=== PATIENT | female | born 1945 | race Caucasian/White ===

== ENCOUNTER → 2016-07-16 | Outpatient (CLI) | payer OTHER, BC ==
[2015-12-22 15:18] VITALS: BP 127/58
[2016-07-16 14:11] LABS: BASOPHILS % (AUTO) 0.3 % (0.2-1.0); EOSINOPHILS # (AUTO) 0.2 x10^3/uL (0.0-0.2); EOSINOPHILS % (AUTO) 3.3 % (0.9-2.9); HEMATOCRIT 42.2 % (36.0-47.0); HEMOGLOBIN 14.1 g/dL (12.0-16.0); LYMPHOCYTES # (AUTO) 1.5 X10^3/uL (1.3-2.9); LYMPHOCYTES % (AUTO) 29.9 % (21.0-51.0); MEAN CORPUSCULAR HEMOGLOBIN 31.7 pg (27.0-34.0); MEAN CORPUSCULAR HGB CONC 33.4 g/dL (33.0-35.0); MEAN CORPUSCULAR VOLUME 94.9 fL (80.0-100.0); MEAN PLATELET VOLUME 8.2 fL (7.4-11.0); MONOCYTES # (AUTO) 0.4 x10^3/uL (0.3-0.8); MONOCYTES % (AUTO) 8.4 % (0.0-13.0); NEUTROPHILS # (AUTO) 2.9 x10^3/uL (2.2-4.8); NEUTROPHILS % (AUTO) 58.1 % (42.0-75.0); PLATELET COUNT 245 X10^3/uL (150.0-450.0); RED BLOOD COUNT 4.44 X10^6/uL (3.5-5.4); RED CELL DISTRIBUTION WIDTH 12.5 % (11.6-16.5); WHITE BLOOD COUNT 4.9 X10^3/uL (3.6-10.0)
[2016-07-16 14:13] LABS: ALANINE AMINOTRANSFERASE 34 Units/L (12-78); ALBUMIN 3.5 g/dL (3.4-5.0); ALKALINE PHOSPHATASE 84 Units/L (46-116); ASPARTATE AMINO TRANSFERASE 32 Units/L (15-37); BLOOD UREA NITROGEN 12 mg/dL (7-18); CALCIUM 8.6 mg/dL (8.5-10.1); CARBON DIOXIDE 28.3 mmol/L (21-32); CHLORIDE 107 mmol/L (98-107); CHOL/HDL RATIO 2.8 (0.0-5.0); CHOLESTEROL 150 mg/dL (0-200); COR NA(FOR HYPERGLY) 143 mmol/L (136-145); CREATININE 0.88 mg/dL (0.55-1.02); GLUCOSE 115 mg/dL (65-99); HDL CHOLESTEROL 54 mg/dL (40-60); MAGNESIUM 1.9 mg/dL (1.7-2.9); SODIUM 143 mmol/L (136-145); TOTAL PROTEIN 7.2 g/dL (6.4-8.2); TRIGLYCERIDES 112 mg/dL (0-150); eGFR BLACK RACES > 60 (>60); eGFR NON BLACK RACES > 60 (>60)
[2016-07-16 14:49] LABS: ERYTHROCYTE SEDIMENTATION RATE 5 MM/HOUR (0-20)
[2016-07-16 15:04] LABS: TRANSFERRIN 207 mg/dL (202-364)
== END ==
LOC: LAB 13:18
PROVIDERS: ATTEND Nurse Practitioner Family
DX: D51.0 Vitamin B12 deficiency anemia due to intrinsic factor deficiency (principal); E55.9 Vitamin D deficiency, unspecified; E78.4 Other hyperlipidemia; I10 Essential (primary) hypertension; Z76.0 Encounter for issue of repeat prescription
CPT/HCPCS: 36415; 80053; 80061; 82306; 82607; 82728; 82746; 83735; 84466; 85025; 85652; 86140

== ENCOUNTER → 2016-07-18 | Outpatient (CLI) | payer OTHER, BC ==
[2015-12-22 15:18] VITALS: BP 127/58
[2016-07-18 15:49] LABS: CREATININE,URINE 30.6 mg/dL (29-226); MICROALBUMIN,URINE 1.6 mg/L
== END ==
LOC: LAB 15:15
PROVIDERS: ATTEND Nurse Practitioner Family
DX: Z76.0 Encounter for issue of repeat prescription (principal); D51.0 Vitamin B12 deficiency anemia due to intrinsic factor deficiency; E55.9 Vitamin D deficiency, unspecified; E78.4 Other hyperlipidemia; I10 Essential (primary) hypertension
CPT/HCPCS: 82043

== ENCOUNTER → 2016-07-19 | Outpatient (CLI) | payer OTHER, BC ==
[2015-12-22 15:18] VITALS: BP 127/58
--- NOTE | 2016-07-19 12:05 | US ---
History: Ovarian enlargement Exam: Pelvic ultrasound Comparison: None Technique: Multiple grayscale and color flow Doppler images of the pelvis were obtained. Findings: The uterus appears normal measuring 5.4 x 3.3 x 2.5 cm. The endometrial stripe appears within normal limits. No uterine mass or fluid collection. The right ovary measures 1.9 x 1.1 x 1.3 cm with normal flow. The left ovary measures 1.1 x 0.9 x 1. 0 cm with normal flow. No adnexal masses. No significant free fluid. IMPRESSION: 1. Unremarkable pelvic ultrasound. Reported By:
--- NOTE | 2016-07-19 12:52 | US ---
HISTORY: Abdominal pain. Renal issues. Study: Complete abdominal ultrasound exam. Comparison: None. Technique: Multiple daniels scale and color flow Doppler images of the abdomen were obtained. Findings: The liver is normal in echotexture. No intraparenchymal mass or intrahepatic biliary ductal dilatat ion can be identified. There is a large amount of shadowing in the gallbladder fossa which could be secondary to a large amount of gallstones or calcification of the gallbladder wall. This could be b est assessed with CT imaging of the abdomen with IV contrast. The common bile duct is normal measur ing 4 millimeters. The spleen is not seen on this exam. The visualized portions of the pancreas are normal in their echotexture and size. The right and left kidney are normal in echotexture and size. The right kidney measures 92 x 52 x 54 millimeters. The left kidney measures 90 x 42 x 44 millimeter s. No mass, hydronephrosis, or stone can be identified. The visualized portions of the abdominal aor ta are normal in size without aneurysmal dilatation. The inferior vena cava is unremarkable as well . No ascites or focal fluid collection is evident. IMPRESSION: Large amount of shadowing in the gallbladder fossa which could be secondary to a large a mount of gallstones or calcification of the gallbladder wall. This could be best assessed with CT im aging of the abdomen with IV contrast. No ascites is observed. Spleen is not observed on this examin ation. No other abdominal sonographic abnormalities are seen. Reported By:
== END ==
LOC: RAD 10:23
PROVIDERS: ATTEND Nurse Practitioner Family
DX: N83.8 Other noninflammatory disorders of ovary, fallopian tube and broad ligament (principal); R10.31 Right lower quadrant pain
CPT/HCPCS: 76700; 76830

== ENCOUNTER → 2016-07-27 | Outpatient (CLI) | payer OTHER, BC ==
[2015-12-22 15:18] VITALS: BP 127/58
[2016-07-27 12:14] LABS: BILIRUBIN,URINE NEGATIVE (NEGATIVE); BLOOD/HEMOGLOBIN,URINE 3+ (NEGATIVE); GLUCOSE, URINE NEGATIVE (NEGATIVE); KETONES,URINE NEGATIVE (NEGATIVE); LEUKOCYTE ESTERASE ,URINE 3+ (NEGATIVE); NITRITES,URINE POSITIVE (NEGATIVE); PROTEIN,URINE 2+ (NEGATIVE); UROBILINOGEN,URINE NORMAL (NORMAL)
[2016-07-27 12:30] LABS: APPEARANCE,URINE CLOUDY (CLEAR); COLOR,URINE YELLOW (YELLOW)
[2016-07-27 12:31] LABS: AMORPHOUS SEDIMENT,UR TRACE /HPF (NEGATIVE); BACTERIA,URINE 2+ /HPF (NEGATIVE); RBC,URINE 0 - 2 /HPF (NEGATIVE); RENAL EPITHELIAL CELLS,URINE RARE /HPF (NEGATIVE); SQUAMOUS EPITHELIAL CELL,UR FEW /HPF (NEGATIVE)
== END ==
LOC: LAB 11:49
PROVIDERS: ATTEND Nurse Practitioner Family
DX: R30.0 Dysuria (principal); B96.29 Other Escherichia coli [E. coli] as the cause of diseases classified elsewhere
CPT/HCPCS: 81001; 87086; 87088; 87186

== ENCOUNTER → 2016-08-13 | Outpatient (CLI) | payer OTHER, BC ==
[2015-12-22 15:18] VITALS: BP 127/58
== END ==
LOC: LAB 12:22
PROVIDERS: ATTEND Nurse Practitioner Family
DX: R30.0 Dysuria (principal)
CPT/HCPCS: 87086

== ENCOUNTER → 2016-08-15 | Outpatient (CLI) | payer OTHER, BC ==
[2015-12-22 15:18] VITALS: BP 127/58
--- NOTE | 2016-08-15 16:11 | RAD ---
Examination: X-rays of the right shoulder. Clinical history: Right shoulder pain. Technique: Three views of the right shoulder were obtained. A total of 4 images were reviewed. Comparison: None available. Findings: No acute fracture, dislocation, or destructive bony lesion is noted. No arthropathy is appreciated at the right shoulder. Degenerative changes are noted in the visualize d portion of the spine. No soft tissue abnormality is noted. Impression: 1. No acute fracture or dislocation. Reported By:
== END | disposition home or self-care (01) | DRG 392 ==
LOC: LAB 15:30
PROVIDERS: ATTEND Nurse Practitioner Family
DX: R10.84 Generalized abdominal pain (principal); M25.511 Pain in right shoulder
CPT/HCPCS: 73030; 82270; 87338; 87493

== ENCOUNTER → 2016-08-27 | Outpatient (CLI) | payer OTHER, BC ==
[2015-12-22 15:18] VITALS: BP 127/58
--- NOTE | 2016-08-28 08:13 | MRI ---
HISTORY: Spondylosis, back pain, bilateral radiculopathy Study: MRI lumbar spine without contrast Comparison: None Technique: Multiplanar multi-sequence MRI of the lumbar spine was obtained. Sagittal T1, sagittal T 2, and stir weighted images, axial T1, and axial T2 images were obtained. Findings: There is slight anterolisthesis L5 on S1. The lumbar spine demonstrates otherwise normal alignment w ith the expected signal characteristics of the bone marrow. The conus of the cord terminates normal ly. T12 -- L1: No evidence for compressive disc disease. The neural foramina are patent. The joints are normal. L1 -- L2: No evidence for compressive disc disease. The neural foramina are patent. The joints are n ormal. L2 -- L3: There is broad-based disc protrusion which effaces the thecal sac. It extends more to the left than the right where it contributes to significant lateral recess and foraminal narrowing. It c ontributes to mild lateral recess narrowing on the right. Mild bilateral facet arthropathy is presen t. L3 -- L4: There is disc degeneration with broad-based disc bulging which contributes along with bila teral facet arthropathy to mild lateral recess narrowing bilaterally. L4 -- L5: Mild concentric disc bulging causes mild thecal sac effacement and contributes to minimal lateral recess narrowing bilaterally. Minimal facet arthropathy is present bilaterally L5 -- S1: There is slight anterolisthesis L5 on S1 there is associated broad-based disc protrusion w hich contributes along with spondylitic change to mild lateral recess narrowing bilaterally left sli ghtly worse than right. Mild facet arthropathy is present. IMPRESSION: As above Reported By:
== END ==
LOC: RAD 11:31
PROVIDERS: ATTEND Nurse Practitioner Family
DX: M47.896 Other spondylosis, lumbar region (principal)
CPT/HCPCS: 72148

== ENCOUNTER 2016-10-29 19:50 | Emergency (ER) | payer OTHER, BC ==
[2016-10-29 19:52] VITALS: BP 127/58
[2016-10-29 19:58] VITALS: BMI 25.1
== END 2016-10-29 22:00 | disposition left against medical advice (07) ==
LOC: ER 20:16
DX: Z98.890 Other specified postprocedural states (principal)
CPT/HCPCS: 99281

== ENCOUNTER → 2016-11-08 | Outpatient (CLI) | payer OTHER, BC ==
[2016-10-29 19:52] VITALS: BP 127/58
== END ==
LOC: LAB 15:04
DX: R19.7 Diarrhea, unspecified (principal); B96.89 Other specified bacterial agents as the cause of diseases classified elsewhere
CPT/HCPCS: 87493

== ENCOUNTER → 2017-04-01 | Outpatient (CLI) | payer OTHER, BC ==
[2017-04-01 10:03] LABS: BASOPHILS % (AUTO) 0.3 % (0.2-1.0); EOSINOPHILS # (AUTO) 0.3 x10^3/uL (0.0-0.2); EOSINOPHILS % (AUTO) 4.6 % (0.9-2.9); HEMATOCRIT 40.5 % (36.0-47.0); HEMOGLOBIN 13.9 g/dL (12.0-16.0); LYMPHOCYTES # (AUTO) 2.4 X10^3/uL (1.3-2.9); LYMPHOCYTES % (AUTO) 33.1 % (21.0-51.0); MEAN CORPUSCULAR HGB CONC 34.2 g/dL (33.0-35.0); MEAN CORPUSCULAR VOLUME 93.6 fL (80.0-100.0); MEAN PLATELET VOLUME 8.2 fL (7.4-11.0); MONOCYTES # (AUTO) 0.9 x10^3/uL (0.3-0.8); MONOCYTES % (AUTO) 11.9 % (0.0-13.0); NEUTROPHILS # (AUTO) 3.6 x10^3/uL (2.2-4.8); NEUTROPHILS % (AUTO) 50.1 % (42.0-75.0); PLATELET COUNT 265 X10^3/uL (150.0-450.0); RED BLOOD COUNT 4.33 X10^6/uL (3.5-5.4); RED CELL DISTRIBUTION WIDTH 13.1 % (11.6-16.5); WHITE BLOOD COUNT 7.3 X10^3/uL (3.6-10.0)
[2017-04-01 10:18] LABS: ALANINE AMINOTRANSFERASE 28 Units/L (12-78); ALBUMIN 3.4 g/dL (3.4-5.0); ALKALINE PHOSPHATASE 99 Units/L (46-116); ASPARTATE AMINO TRANSFERASE 22 Units/L (15-37); BLOOD UREA NITROGEN 14 mg/dL (7-18); CALCIUM 8.5 mg/dL (8.5-10.1); CARBON DIOXIDE 27.3 mmol/L (21-32); CHLORIDE 104 mmol/L (98-107); CHOL/HDL RATIO 4.2 (0.0-5.0); CHOLESTEROL 191 mg/dL (0-200); CREATININE 0.88 mg/dL (0.55-1.02); HDL CHOLESTEROL 45 mg/dL (40-60); SODIUM 138 mmol/L (136-145); TOTAL PROTEIN 7.2 g/dL (6.4-8.2); TRIGLYCERIDES 200 mg/dL (0-150); eGFR BLACK RACES > 60 (>60); eGFR NON BLACK RACES > 60 (>60)
== END ==
LOC: LAB 09:28
PROVIDERS: ATTEND Nurse Practitioner Family
DX: E78.4 Other hyperlipidemia (principal); D51.0 Vitamin B12 deficiency anemia due to intrinsic factor deficiency; M81.0 Age-related osteoporosis without current pathological fracture; I10 Essential (primary) hypertension
CPT/HCPCS: 36415; 80053; 80061; 82306; 82607; 85025

== ENCOUNTER → 2017-04-04 | Outpatient (CLI) | payer OTHER, BC | LOC: LAB 14:58 | PROVIDERS: ATTEND Nurse Practitioner Family | DX: Z98.890 Other specified postprocedural states (principal); Z92.3 Personal history of irradiation | CPT/HCPCS: 86316 ==

== ENCOUNTER → 2017-06-27 | Outpatient (CLI) | payer OTHER, BC ==
[2017-06-27 15:17] LABS: BASOPHILS % (AUTO) 0.4 % (0.2-1.0); EOSINOPHILS # (AUTO) 0.2 x10^3/uL (0.0-0.2); EOSINOPHILS % (AUTO) 2.8 % (0.9-2.9); HEMATOCRIT 39.9 % (36.0-47.0); HEMOGLOBIN 13.6 g/dL (12.0-16.0); LYMPHOCYTES # (AUTO) 1.4 X10^3/uL (1.3-2.9); LYMPHOCYTES % (AUTO) 25.4 % (21.0-51.0); MEAN CORPUSCULAR HEMOGLOBIN 32.6 pg (27.0-34.0); MEAN CORPUSCULAR HGB CONC 34.1 g/dL (33.0-35.0); MEAN CORPUSCULAR VOLUME 95.6 fL (80.0-100.0); MEAN PLATELET VOLUME 7.7 fL (7.4-11.0); MONOCYTES # (AUTO) 0.7 x10^3/uL (0.3-0.8); MONOCYTES % (AUTO) 13.3 % (0.0-13.0); NEUTROPHILS # (AUTO) 3.2 x10^3/uL (2.2-4.8); NEUTROPHILS % (AUTO) 58.1 % (42.0-75.0); PLATELET COUNT 249 X10^3/uL (150.0-450.0); RED BLOOD COUNT 4.17 X10^6/uL (3.5-5.4); RED CELL DISTRIBUTION WIDTH 12.9 % (11.6-16.5); WHITE BLOOD COUNT 5.4 X10^3/uL (3.6-10.0)
[2017-06-27 15:33] LABS: ALANINE AMINOTRANSFERASE 26 Units/L (12-78); ALBUMIN 3.2 g/dL (3.4-5.0); ALKALINE PHOSPHATASE 93 Units/L (46-116); ASPARTATE AMINO TRANSFERASE 20 Units/L (15-37); BLOOD UREA NITROGEN 11 mg/dL (7-18); CALCIUM 8.3 mg/dL (8.5-10.1); CARBON DIOXIDE 28.7 mmol/L (21-32); CHLORIDE 102 mmol/L (98-107); COR CA(FOR HYPOALB) 8.9 mg/dL (8.5-10.1); CREATININE 0.72 mg/dL (0.55-1.02); SODIUM 139 mmol/L (136-145); TOTAL PROTEIN 6.9 g/dL (6.4-8.2); eGFR BLACK RACES > 60 (>60); eGFR NON BLACK RACES > 60 (>60)
[2017-06-27 15:53] LABS: ERYTHROCYTE SEDIMENTATION RATE 2 MM/HOUR (0-20)
--- NOTE | 2017-06-28 09:03 | RAD ---
HISTORY: Abdominal Pain Study: Frontal view of the chest, flat and upright views of the abdomen Comparison: None. Findings: Cardiomediastinal silhouette is normal in size. No focal consolidations, pleural effusions or pneumot horax. Hyper expansion of the lungs with coarsening of interstitial markings. Large hiatal hernia. Os seous structures are without acute abnormality. Flat and upright views of the abdomen demonstrates a normal bowel gas pattern. No free air. No abnor mal calcifications or abnormal soft tissue shadows. No acute bony abnormalities. IMPRESSION: 1. No acute cardiopulmonary disease. 2. No evidence for acute abdominal pathology. 3. COPD and large hiatal hernia. Reported By:
== END ==
LOC: LAB 14:57
PROVIDERS: ATTEND Nurse Practitioner Family
DX: I10 Essential (primary) hypertension (principal); Z86.39 Personal history of other endocrine, nutritional and metabolic disease; M81.0 Age-related osteoporosis without current pathological fracture; R10.84 Generalized abdominal pain; J44.9 Chronic obstructive pulmonary disease, unspecified; K44.9 Diaphragmatic hernia without obstruction or gangrene
CPT/HCPCS: 36415; 74022; 80053; 82306; 82607; 85025; 85652; 86140

== ENCOUNTER → 2017-07-02 | Outpatient (CLI) | payer OTHER, BC ==
--- NOTE | 2017-07-02 15:01 | CT ---
HISTORY: Abdominal pain with previous history of hernia and diverticulitis Study: CT abdomen and pelvis without contrast Comparison: January 31, 2015 Technique: Multiple axial images of the abdomen and pelvis were obtained from the lung bases to the pubic symphy sis without the administration of IV contrast. Dose reduction techniques including automated exposur e control (AEC) and adjustment of mA and kV were utilized. Findings: Minimal atelectasis and scarring are seen within the visualized lungs. The liver, spleen, adrenals, a nd kidneys are grossly unremarkable in appearance given the limitations of this noncontrast exam. No CT evidence of hydronephrosis is identified. The pancreas is partially fatty replaced. Mild mesenteri c stranding in the region of the pancreatic head cannot entirely be excluded. Correlate clinically fo r pancreatitis. Surgical clips are noted within the gallbladder fossa. A large hiatal hernia is again demonstrated. Scattered diverticula are seen within the colon and are most pronounced within the sig moid region. An air-filled tubular structure within the right lower quadrant possibly representing th e appendix is otherwise grossly unremarkable. The urinary bladder is unremarkable. Degenerative schilling es are seen within the visualized spine. IMPRESSION: Large hiatal hernia similar to prior exam.. Diverticulosis. Questionable mild peripancreatic fat stranding. Correlate clinically for pancreatitis. Cholecystectomy. Other findings as noted above. Reported By:
== END ==
LOC: RAD 12:35
PROVIDERS: ATTEND Nurse Practitioner Family
DX: R10.84 Generalized abdominal pain (principal); K44.9 Diaphragmatic hernia without obstruction or gangrene; K57.30 Diverticulosis of large intestine without perforation or abscess without bleeding
CPT/HCPCS: 74176

== ENCOUNTER → 2017-07-05 | Outpatient (CLI) | payer OTHER, BC ==
[2017-07-05 11:34] LABS: CHOL/HDL RATIO 2.7 (0.0-5.0)
== END ==
LOC: LAB 10:52
PROVIDERS: ATTEND Nurse Practitioner Family
DX: R10.9 Unspecified abdominal pain (principal); E78.4 Other hyperlipidemia
CPT/HCPCS: 36415; 80061; 82150; 83690; 85652; 86140

== ENCOUNTER → 2017-07-11 | Outpatient (CLI) | payer OTHER, BC ==
[~2017-07-11] MED LIST: NS 100 ML IV 100 ML IV ONE
--- NOTE | 2017-07-11 16:54 | CT ---
HISTORY: Abdominal pain. Cholecystectomy. Bilateral breast reconstruction. Bilateral mastectomy. Study: Computed tomography of the abdomen and pelvis: Multiple axial images were obtained throughou t the abdomen and pelvis after the ingestion of oral contrast and injection of intravascular contrast per standard protocol. Radiation dose reduction techniques utilized. Comparison: 07/02/2017, 01/31/2015 Findings: Examination of the lung bases demonstrates minimal hypostatic change. A very large hiatal hernia is present with herniation of approximately 1/2 to 2/3 of the stomach into the inferior chest. There is a widely patulous diaphragmatic hiatus present. The heart size is normal. No appreciable coronary arterial calcification or pericardial effusion is noted. Surgical clips are present in the region of the breast consistent with prior mastectomy and breast reconstruction. A small nodule is present in the are the right breast, measuring approximately 8 mm in maximum dimension. This is not felt to be significantly changed from the 2 prior exams. Follow-up is recommended. The liver as visualized shows no focal lesions. There is mild central hepatic biliary duct dilatatio n. The patient is status post cholecystectomy. The common bile duct is dilated measuring up to 10 m m in maximum dimension. It continues to be dilated in to the pancreatic head but gradually tapers to at the level of the ampulla of Vater. Moderate fatty infiltration of the pancreas is noted. There is focal hypodensity in the pancreatic tail, similar to the examination from 01/31/2015 , most likely due to the fatty infiltration. The adrenal glands are normal. The spleen is normal. The kidneys ar e normal in their appearance. Minimal atherosclerotic changes present in the abdominal aorta. No ev idence of retroperitoneal lymph node enlargement is identified. Mild atherosclerotic changes present in the iliac arteries. The uterus is present and there is prominence of the endometrium this appear s to be more prominent than it was on prior examination. Pelvic ultrasound is recommended. What is felt to be the left ovary is normal in size with a small cyst, unchanged from the prior examination. What is felt to be the right ovary is normal. No evidence of free pelvic fluid is noted. The bladd er contour is smooth. There is a small fat containing inguinal hernia on the right and probably the left as well. The patient has had resection of the rectus muscles consistent with a trans flap sujatha st reconstruction. There is a small ventral hernia present measuring approximately 3 cm in width by approximately 2.1 cm in cephalocaudal dimension. This contains small bowel but does not appear to be strangulated or incarcerated. The stomach within the hiatal hernia appears normal. This does not appear to be a paraesophageal her buck. The distal stomach is in normal location. The duodenum is mildly distended, otherwise normal. The small bowel is nondistended. No evidence of mesenteric adenopathy is identified. The cecum is normal in its appearance. The terminal ileum is normal. I do not clearly identify an appendix. Thi s at least 1 diverticulum extending from the cecum. A moderate amount of stool is present within the transverse colon. The transverse colon is moderately redundant. The descending colon has a small t o moderate amount of stool within it. There are several diverticula extending from a moderately redu ndant sigmoid colon. I see no evidence of diverticulitis. Region of the rectum is normal. There ap pears to most likely be a cystocele present. Clinical correlation is recommended. This is incomplet keanu visualized. There is moderate lumbar spondylosis, predominating at L2/L3. Minimal degenerative changes present w ithin the hips. IMPRESSION: 1. Large hiatal hernia containing at least half to 2/3 of the stomach. 2. Patient is status post cholecystectomy with mild intrahepatic and [id number] extra hepatic biliary duct dilatation. This does not appear to be significantly changed. 3. Diverticulosis without evidence of diverticulitis. 4. Bilateral mastectomy with tram flap reconstruction. 5. Fatty infiltration of the pancreas. 6. Small anterior abdominal wall hernia. 7. There appears to be a cystocele present 8. Small nodule in the region of the right breast reconstruction. This is seen on the examination fr om 2014 and 2017. Follow-up ultrasound may be of assistance. Mammography may be necessary. 9. Prominence of the endometrium, atypical for patient of this age. This could be due to the enhance ment of the myometrium can be artifactual. Pelvic ultrasound however is recommended. Reported By:
== END | disposition home or self-care (01) | DRG 392 ==
LOC: RAD 09:29
PROVIDERS: ATTEND Nurse Practitioner Family
DX: R93.5 Abnormal findings on diagnostic imaging of other abdominal regions, including retroperitoneum (principal); K44.9 Diaphragmatic hernia without obstruction or gangrene; K57.30 Diverticulosis of large intestine without perforation or abscess without bleeding; R10.84 Generalized abdominal pain; K43.9 Ventral hernia without obstruction or gangrene; Z90.13 Acquired absence of bilateral breasts and nipples
CPT/HCPCS: 74177; A4222

== ENCOUNTER → 2017-07-23 | Outpatient (CLI) | payer OTHER, BC ==
--- NOTE | 2017-07-23 14:35 | US ---
HISTORY: Right breast nodule seen on CT, history of breast cancer post bilateral mastectomies with t miguel flap reconstruction approximately 12 years ago; left chest wall burning sensation Comparison: CT 07/11/2017, CT 01/31/2015 FINDINGS: Bilateral breast ultrasound was performed. At the 5 o'clock position of the right breast there is a s mooth-walled well-circumscribed nodule with central echogenic focus suggestive of a lymph node measur ing 8 x 9 x 6 mm. No other solid mass or fluid collections are seen. The left chest wall was also sca nned demonstrating no abnormalities in this region. IMPRESSION: Bilateral breast reconstruction with a 9 mm lymph node in the right chest wall correspon ding to the nodule seen on CT. This is unchanged dating back to 2014. No sonographic abnormality see n in the left chest wall. ACR CATEGORY 2: Benign findings. Recommend routine yearly mammographic screening * 0 (ZERO) - ASSESSMENT INCOMPLETE; ADDITIONAL IMAGING IS NEEDED. * 1/ (ONE) - NEGATIVE. * 2/II (TWO) - BENIGN FINDINGS. * 3/III (THREE) - PROBABLY BENIGN FINDING; SHORT INTERVAL FOLLOW-UP SUGGESTED. * 4/IV (FOUR) - SUSPICIOUS ABNORMALITY; BIOPSY SHOULD BE CONSIDERED. * 5/V - HIGHLY SUSPICIOUS OF MALIGNANCY; BIOPSY SHOULD BE PERFORMED. A NEGATIVE X-RAY REPORT SHOULD NOT DELAY BIOPSY IF A DOMINANT OR CLINICALLY SUSPICIOUS MASS IS PRESENT; 4 TO 8 PERCENT OF CANCERS ARE NOT IDENTIFIED BY X-RAY. A NEGA TIVE REPORT MAY REINFORCE THE CLINICAL IMPRESSION. ADENOSIS AND DENSE BREASTS MAY OBSCURE AN UNDERLY ING NEOPLASM. Reported By:
--- NOTE | 2017-07-23 15:52 | US ---
History: Abnormal CT with thickened endometrium Exam: Transabdominal pelvic ultrasound Comparison: July 11, 2017 Technique: Multiple grayscale and color flow Doppler images of the pelvis were obtained. Findings: The uterus measures 5.6 cm in greatest sagittal dimension. No evidence for myometrial masses or calc ifications can be observed. The endometrial stripe measures 5.2 mm which is considered slightly thic kened in a postmenopausal patient but is considered within normal limits if the patient is undergoing hormonal replacement therapy and for which clinical correlation and gynecologic consultation are rec ommended. The ovaries are obscured on this transabdominal exam. No free fluid or adnexal mass is see n. The bladder is grossly unremarkable. IMPRESSION: Borderline thickened endometrium as above. Reported By:
== END ==
LOC: RAD 12:16
PROVIDERS: ATTEND Nurse Practitioner Family
DX: R10.2 Pelvic and perineal pain (principal); N63.14 Unspecified lump in the right breast, lower inner quadrant; Z85.3 Personal history of malignant neoplasm of breast; Z90.13 Acquired absence of bilateral breasts and nipples
CPT/HCPCS: 76642; 76856

== ENCOUNTER → 2017-09-12 | Outpatient (CLI) | payer OTHER, BC ==
--- NOTE | 2017-09-12 16:09 | RAD ---
PA and lateral chest. Indication: Abdominal pain Comparison: 11/21/2015 Findings: Heart size is normal. Trachea is midline. No focal airspace opacity identified within eithe r lung. No pleural effusion or pneumothorax. Large hiatal hernia with suspected majority of the stoma ch within the thoracic cavity is similar to prior examination however appears slightly enlarged. Bila teral mastectomy changes are noted. No acute osseous abnormality. Impression: 1.No acute cardiopulmonary abnormality. 2. Large hiatal hernia which has slightly increased is incised prior examination likely represents an intrathoracic stomach. Reported By:
== END | disposition home or self-care (01) | DRG 204 ==
LOC: RAD 15:10
PROVIDERS: ATTEND Internal Medicine Critical Care Medicine
DX: R06.02 Shortness of breath (principal); K44.9 Diaphragmatic hernia without obstruction or gangrene
CPT/HCPCS: 71046

== ENCOUNTER → 2017-09-18 | Outpatient (CLI) | payer OTHER, BC ==
[2017-09-18 15:44] LABS: STOOL FOR WBC POSITIVE (NEGATIVE)
[2017-09-18 15:54] LABS: CRYPTOSPORIDIUM PARVUM ANTIGEN NEGATIVE (NEGATIVE); GIARDIA LAMBLIA ANTIGEN NEGATIVE (NEGATIVE)
== END ==
LOC: LAB 14:16
PROVIDERS: ATTEND Internal Medicine Gastroenterology
DX: K59.1 Functional diarrhea (principal)
CPT/HCPCS: 82705; 83630; 87045; 87328; 87329; 87336; 87427; 87449; 87493